=== PATIENT | female | born 1965 | race Native Hawaiian/Other Pacific Islander ===

== ENCOUNTER 2018-09-26 15:39 | Emergency (ER) | payer BC, OTHER ==
--- NOTE | 2018-09-26 17:45 | XRAY Report ---
Reason: Left knee pain Procedure Date: 09/26/2018 Accession Number: [id number] / [id number] Procedure: XR - Knee 4 View LT CPT Code: FULL RESULT: EXAM: LEFT KNEE RADIOGRAPHY EXAM DATE: 09/26/2018 05:16 PM. CLINICAL HISTORY: Fall, pain. COMPARISON: None. TECHNIQUE: 4 views, including oblique views. FINDINGS: Bones: Normal. No fractures or bone lesions. Joints: Normal. No effusion. No subluxations. Soft Tissues: Unremarkable. IMPRESSION: Normal knee radiography. [facility]
[2018-09-26 18:10] VITALS: BP 137/87
[2018-09-26] MEDS ORDERED: ACETAMINOPHEN 500 MG TABLET PO STA (18:18)
[2018-09-26] MEDS ORDERED: NAPROXEN 250 MG TABLET PO STA (18:18)
--- NOTE | 2018-09-26 18:21 | ED Physician Documentation ---
PD HPI LOWER EXT INJURY - Stated complaint Stated Complaint: L KNEE INJ - Chief complaint Chief Complaint: Ext Problem - History obtained from History obtained from: Patient - History of Present Illness PD HPI LOW EXT INJURY LOCATION: Left, Knee Type of injury: Fall, Twist Where injury occurred: Other (while skiing) Timing - onset: Today Timing - details: Abrupt onset Severity Comments: moderate Improved by: Rest, Immobilization Worsened by: Moving, Palpating Associated symptoms: Swelling Contributing factors: No: Anticoagulated Similar symptoms before: No diagnosis Recently seen: Not recently seen Review of Systems Constitutional: denies: Fever, Chills Eyes: denies: Discharge Ears: denies: Ear pain Nose: denies: Congestion Throat: denies: Sore throat Cardiac: denies: Chest pain / pressure GI: denies: Abdominal Pain Musculoskeletal: reports: Extremity pain, Extremity swelling PD PAST MEDICAL HISTORY - Past Medical History Past Medical History: No - Past Surgical History Past Surgical History: No - Allergies Allergies/Adverse Reactions: Allergies Allergy/AdvReac Type Severity Reaction Status Date / Time Penicillins Allergy Anaphylaxis Verified 09/26/18 15:50 - Social History Does the pt smoke?: No Smoking Status: Never smoker Does the pt drink ETOH?: No Does the pt have substance abuse?: No PD ED PE NORMAL - General General: Alert and oriented X 3, No acute distress - HEENT HEENT: Atraumatic, PERRL, EOMI, Ears normal - Derm Derm: Normal color - Extremities Extremities: No deformity. No: No tenderness to palpate (The patient has full active range of motion of the hip, there is decreased Active range of motion of the knee secondary to swelling and pain and there is normal range of motion of the ankle. The patient has tenderness to palpation of the left knee more so posteriorly. An accurate exam is limited secondary to the acute pain and swelling. The patient has a normal dorsalis pedis pulse and normal cap refill.) Results - Vitals Vitals: Vital Signs - 24 hr 09/26/18 09/26/18 15:52 18:08 Temperature 36.7 C Heart Rate 100 101 H Respiratory 16 16 Rate Blood Pressure 136/88 H 137/87 H O2 Saturation 97 98 Oxygen O2 Source Room air - Rads (name of study) Knee XR Radiology: Final report received, See rad report (no fx) PD MEDICAL DECISION MAKING - ED course ED course: The patient has no acute findings on her x-ray, the patient appears appropriate for discharge and will be given a knee immobilizer and crutches. I have advised that the patient should follow-up with orthopedics once her pain and swelling decreases so that orthopedics can reassess her and determine if there is concern for possible meniscus or ligamentous injury. The patient understands and agrees. I discussed warning signs and recommended returning for any worsening or any concerns. Departure - Departure Disposition: 01 Home, Self Care Clinical Impression: Knee strain Qualifiers: Encounter type: initial encounter Laterality: unspecified laterality Qualified Code(s): S86.919A - Strain of unspecified muscle(s) and tendon(s) at lower leg level, unspecified leg, initial encounter Condition: Good Instructions: ED Sprain Knee Follow-Up: [facility] [Provider Group] (Please call to schedule an appointment for follow-up of your knee injury for 1-2 weeks) Comments: You can weight-bear as tolerated Please return to the emergency department for worsening symptoms or any concerns
== END 2018-09-26 18:37 | disposition home or self-care (01) ==
LOC: ED 15:39
DX: S86.919A Strain of unspecified muscle(s) and tendon(s) at lower leg level, unspecified leg, initial encounter (principal); W03.XXXA Other fall on same level due to collision with another person, initial encounter; Y93.23 Activity, snow (alpine) (downhill) skiing, snowboarding, sledding, tobogganing and snow tubing; X50.1XXA Overexertion from prolonged static or awkward postures, initial encounter
CPT/HCPCS: 99282; 99283

== ENCOUNTER 2018-10-06 14:53 | Outpatient (CLI) | payer BC ==
--- NOTE | 2018-10-07 08:21 | MRI Report ---
Reason: INSTABILITY OF LEFT KNEE JOINT Procedure Date: 10/06/2018 Accession Number: [id number] / [id number] Procedure: MRI - Knee LT W/O CPT Code: FULL RESULT: EXAM: LEFT KNEE MRI WITHOUT CONTRAST EXAM DATE: 10/06/2018 04:03 PM. CLINICAL HISTORY: INSTABILITY OF LEFT KNEE JOINT. COMPARISON: KNEE 3 VIEW LT 09/26/2018 4:55 PM. TECHNIQUE: Multiplanar, multisequence T1-weighted and fluid-sensitive sequences of the knee without contrast. Other: None. FINDINGS: Cruciate ligaments: The posterior cruciate appears intact. The fibers of the anterior cruciate ligament are thickened and edematous. There is disorganization of fibers superiorly with some of the fibers laying horizontal posteriorly consistent with high-grade partial versus complete tear of the upper portions of the ligament. Medial meniscus: Intact. No tear is identified. Lateral meniscus: Intact. No tear is identified. Collateral ligaments: The medial and fibular collateral events per intact. Trace amount of edema adjacent to the medial collateral ligament. Bounds and articular surfaces: Moderate cartridge thinning, irregularity and fissuring over the patella with subchondral edema. Small joint effusion. Lateral patellar tracking. Mild cartilage surface irregularity in the medial and lateral compartments. Marrow edema consistent with bone contusion at the posterior aspect of the lateral tibial plateau as well as the periphery of the mid medial femoral condyle. IMPRESSION: 1. High-grade versus complete tear of the anterior cruciate ligament with corresponding posterior tibial plateau and medial femoral condyle bone contusions. [facility] MUSCULOSKELETAL RADIOLOGY SECTION
== END 2018-10-06 14:54 | disposition home or self-care (01) ==
LOC: DI 14:53
PROVIDERS: ATTEND Orthopaedic Surgery Sports Medicine
DX: S83.512A Sprain of anterior cruciate ligament of left knee, initial encounter (principal); S70.12XA Contusion of left thigh, initial encounter

== ENCOUNTER 2018-11-05 09:39 | Day surgery (SDC) | payer BC ==
[2018-11-05] MEDS ORDERED: ceFAZolin 2 GM/50 ML 2 GM/50 ML BAG IV ONE ×2 (09:50→12:00)
[2018-11-05 10:13] LABS: HCG UR QUAL NEGATIVE
[2018-11-05] MEDS ORDERED: LACTATED RINGERS 1,000 ML IV ONE ×2 (10:20→13:10)
[2018-11-05] MEDS ORDERED: EPINEPHrine 1 MG/ML AMP ONE (10:33)
[2018-11-05] MEDS ORDERED: BUPIVACAINE 0.25%-EPI 1:200000 PF 30 ML VIAL ONE (10:33)
--- NOTE | 2018-11-05 10:37 | ANESTHESIA ---
Pre-Anesthesia VS, & Labs - Diagnosis left knee anterior cruciate ligament sprain, left knee instability - Procedure left anterior cruciate ligament repair Vital Signs: Temp Pulse Resp BP Pulse Ox 36.6 C 91 18 153/104 H 99 11/05/18 09:57 11/05/18 09:57 11/05/18 09:57 11/05/18 09:57 11/05/18 09:57 Height 5 ft 11 in Weight (kg) 98 kg Body Mass Index 28.1 - NPO >8 hours - Is Patient ?: No - Lab Results Lab results reviewed: Yes Home Medications and Allergies Home Medications: Ambulatory Orders buPROPion HCl [Bupropion HCl ER] 300 mg PO DAILY 11/04/18 buPROPion HCl [Bupropion HCl ER] 300 mg PO DAILY 11/04/18 Allergies/Adverse Reactions: Allergies Allergy/AdvReac Type Severity Reaction Status Date / Time Penicillins Allergy Anaphylaxis Verified 09/26/18 15:50 Anes History & Medical History - Anesthetic History Anesthesia Complications: reports: Post-Operative Nausea/Vomiting Family history of Anesthesia Complications: Denies Family history of Malignant Hyperthermia: Denies - Medical History Cardiovascular: reports: None Pulmonary: reports: None Gastrointestinal: reports: None Urinary: reports: None Musculoskeletal: reports: None Endocrine/Autoimmune: reports: None Skin: reports: None Smoking Status: Never smoker Exam General: Alert, Oriented x3, Cooperative, No acute distress Dental: Other (cap) Mouth Openin Fingerbreadth Neck Mobility: Normal Mallampati classification: II Thyromental Distance: 4-6 cm Respiratory: Lungs clear, Normal breath sounds, No respiratory distress, No accessory muscle use Cardiovascular: Regular rate, Normal S1, Normal S2, No murmurs Mental/Cognitive Status: Alert/Oriented X3, Normal for patient Plan Anesthesia Type: General Consent for Procedure(s) Verified and Reviewed: Yes Code Status: Attempt Resuscitation ASA classification: 1-Healthy patient Is this case an emergency?: No
[2018-11-05] MEDS ORDERED: SCOPOLAMINE PATCH TOP ONE (10:38)
[2018-11-05] MEDS ORDERED: BUPIVACAINE 0.25% PF 10 ML VIAL ONE (10:52)
[2018-11-05] MEDS: BUPIVACAINE 0.5%-EPI 1:200000 PF 30 ML VIAL ONE ×2 (11:37→11:52)
[2018-11-05] MEDS ORDERED: LIDOCAINE-MPF 2% 5 ML VIAL IM ONE (12:00)
[2018-11-05] MEDS ORDERED: ROCURONIUM 50 MG/5 ML VIAL IVP ONE (12:00)
[2018-11-05] MEDS ORDERED: MORPHINE 10 MG/ML VIAL IVP ONE (12:00)
[2018-11-05] MEDS ORDERED: MIDAZOLAM 2 MG/2 ML VIAL IVP ONE (12:00)
[2018-11-05] MEDS ORDERED: PROPOFOL 200 MG/20 ML VIAL IVP ONE (12:00)
[2018-11-05] MEDS: ONDANSETRON 4 MG/2 ML VIAL ONE ×2 (13:18→13:41)
[2018-11-05] MEDS ORDERED: KETOROLAC 15 MG/ML VIAL ONE (13:24)
--- NOTE | 2018-11-05 13:25 | IMMEDIATE POSTOPERATIVE NOTE ---
Immediate Postoperative Note - Procedure Note Procedure Date: 11/05/18 Pre-Op Diagnosis: Left ACL grade 3 sprain Procedure: Left knee arthroscopically assisted ACL reconstruction with hamstring autog Post-Op Diagnosis: Same Primary Surgeon: Betzaida Meléndez Maintenance Of Way Clerk: None Anesthesia Type: General ET tube, Local Complications: No complications Estimated Blood Loss (in cc): 50 Specimens and Cultures: None Plan of Care: Intolerant procedure well instrument and sponge counts correct patient's brought to the recovery room in stable condition. Patient will follow standard postoperative ACL protocol left knee. When up and about she will keep her hinged knee brace locked in extension with assistance and assistive device as necessary and then when at rest we will remove the brace and work on range of motion. She will keep dressings clean dry and intact She will resume physical therapy per ACL protocol. We will see her in 10-14 days sooner should problems questions or worsening condition should that arise.
[2018-11-05] MEDS ORDERED: oxyCODONE 5 MG TABLET PO PRN (13:26)
[2018-11-05] MEDS ORDERED: ONDANSETRON 4 MG/2 ML VIAL IVP PRN (13:26)
[2018-11-05] MEDS ORDERED: fentaNYL 100 MCG/2 ML VIAL ONE (13:41)
[2018-11-05] MEDS ORDERED: DEXAMETHASONE 4 MG/ML VIAL ONE (13:47)
[2018-11-05] MEDS ORDERED: PROMETHAZINE 25 MG/1 ML VIAL ONE (14:01)
[2018-11-05] MEDS ORDERED: oxyCODONE 5 MG TABLET ONE (15:06)
[2018-11-05 15:32] VITALS: BP 116/83
--- NOTE | 2018-11-05 19:35 | OPERATIVE REPORT ---
DATE OF SERVICE: 11/05/2018 Physician: Willie Meléndez MD SURGEON: Willie Meléndez MD MACHINE STOPPAGE FREQUENCY CHECKER: None. ANESTHESIOLOGIST: Abhinav Boggs MD ANESTHESIA TYPE: General anesthesia as well as 18 mL of 0.5% Marcaine with epinephrine. ESTIMATED BLOOD LOSS: Less than 50 mL. FLUIDS: 1000 mL of lactated Ringer's. TOURNIQUET TIME: 97 minutes at 250 mmHg, left thigh. COMPRESSION DEVICE: Contralateral right calf. PREOPERATIVE ANTIBIOTICS: Weight-based IV Ancef. PREOPERATIVE DIAGNOSIS: Left knee grade 3 anterior cruciate ligament sprain. POSTOPERATIVE DIAGNOSES 1. Left knee grade 3 anterior cruciate ligament sprain. 2. Chondromalacia, multiple compartments. PROCEDURE: Left knee arthroscopically-assisted ACL reconstruction with hamstring autograft. HISTORY OF PRESENT ILLNESS AND INDICATIONS: Patient is an active 53-year-old female who had a grade 3 sprain, left ACL, which is functionally unstable. She is indicated for operative treatment. Please see previous clinic discussion for risks, benefits, and alternatives reviewed with her and her . These are again highlighted in the preoperative care unit. Their questions were answered. They verbalized understanding of above. The patient verbalized her wish to proceed with operative treatment. Informed consent was given. FINDINGS: Operative findings demonstrate full passive range of motion under anesthesia. Positive anterior drawer, Mely and pivot shift testing preprocedure, all of which are negative post ACL reconstruction. Intra- articular suprapatellar pouch and medial and lateral gutters clear. There is grade 2 chondromalacia apex of the patella and grade 1-2 chondromalacia of the trochlea. Medial and lateral compartments have grade 1-2 chondromalacia femoral condyle and tibial plateaus. No medial or lateral meniscal tear noted. PCL okay. ACL functionally complete grade 3 sprain scarred to the PCL. Post femoral fixation, there is good isometry throughout with minimal movement at terminal degrees of extension and good clearance laterally and anterior superiorly. Post tibial fixation, there is full range of motion and rock solid ACL exam throughout. No varus, valgus or posterior instability noted. PROCEDURE IN DETAIL: On 11/05/2018, patient identified in the preoperative care unit. She identified the left knee as the operative site. This was signed by the operating surgeon. Patient received preoperative weight-based IV Ancef, brought to the operating room and placed supine on the operating table. Head, neck and extremities placed in anatomically comfortable and safe position to avoid peripheral nerve stretch and compression. Patient had a well-padded tourniquet placed on the left thigh, taking care to avoid encumbrance of the genitalia. Patient's left knee and left lower extremity were pre-scrubbed with chlorhexidine solution, then prepped and draped in the usual sterile fashion. At this time, surgical pause identified the left knee as the operative site. At this point, local anesthetic infused anteromedial, anterolateral, superomedially and over the planned tibial incision. Esmarch bandage was used to exsanguinate the limb, and then tourniquet was inflated. A small incision was made over the pes. Spreading dissection carried out to the sartorial fascia, which was elevated in an L-shaped fashion. Gracilis and semitendinosus were harvested to maximal length after freeing fibrinous bands. This was set aside on a moist Ray-Jonelle after debriding muscular and fatty tissue and placing #2 FiberWire whipstitches in each end of the graft and draping this over an ACL TightRope. At this point, diagnostic arthroscopy was carried out. A small incision was made anterolaterally and superomedially. Outflow portal was created. Scope was introduced into the notch and then into the suprapatellar pouch. Fluid was infused. Outflow portal was created. Outside-in technique places anteromedial portal. Probe was introduced. Please see diagnostic arthroscopy. At this point, the knee was flexed to 90 degrees and the ACL residual scar tissue was debrided. A notchplasty was performed in the [id number]-thx-zwz position and then a tibial guide set at 57-1/2 based on anatomy was placed to the ACL footprint position anterior to the PCL appropriately and just posterior to the posterior aspect of the anterior horn of the lateral meniscus. Guidepin was brought to an appropriate position, followed by reaming 8 mm, followed by the [id number]-asl-tjx guide to a 130 position. Then, a spade-tipped guidewire brought through the femur, followed by reaming with a 1 mm back wall with an 8 mm acorn reamer to a depth of 25 mm. At this point, bony debris was evacuated. The ACL TightRope was brought into the joint and passed the second cortex, allowed to toggle on the second cortex. Tension was pulled noted to be taut and the graft was pulled into place and seated to a depth of approximately 23-25 mm. At this point, this was tensioned. Isometry was tested. Please see operative findings. At this point, the knee was flexed to 20 degrees. Posterior drawer was administered. All 4 graft limbs were pulled taut and then a guidewire was brought between them, followed by a 10 mm BioComposite interference screw, which has excellent compression fixation. The graft was then examined and noted to be taut. The knee range of motion was noted to be full with rock solid ACL examination. At this point, the residual graft limbs were cut. The joint was copiously irrigated and evacuated. No loose debris was noted. At this point, the arthroscopic incisions were closed using interrupted nylon suture. Sartorial fascia was closed over using 0 Vicryl, followed by repeat irrigation and skin closure of the tibial incision with 0 Vicryl, 2-0 Vicryl and Prolene. Steri-Strips were applied after the skin was washed and dried and local anesthetic was infused around each of the incisions. Xeroform dressing applied on all the wounds. Dry sterile dressing, ABD pad and Sof-Rol was applied. Kailash wrap was applied. Patient was placed in a hinged knee brace locked in extension. Patient tolerated the procedure well. Instrument and sponge counts were correct. Patient was transferred to the recovery room in stable condition. Patient will follow standard ACL protocol. She will be ambulating with assistance and assist device as necessary. Knee brace to be locked in extension for ambulation, though removed for range of motion at rest. She will ice and elevate as directed. She will use perioperative analgesics and aspirin for 1 month as well as akov-grj-ptpumau stool softener. She was given perioperative antibiotics preoperatively. Patient will follow up in 10-14 days, though sooner should problems or questions arise. Dressing will be kept in place. Patient will start physical therapy next week. Patient's was contacted in the waiting room. The case discussed and arthroscopic photos reviewed. His questions were answered. He verbalized agreement and satisfaction of the plan as outlined as the patient had preoperatively. TD: 11/05/2018 16:00 JODY
== END 2018-11-05 09:40 | disposition home or self-care (01) ==
LOC: SDS 09:39
PROVIDERS: ATTEND Orthopaedic Surgery Sports Medicine
PROC: 0LBM0ZZ Excision of Left Upper Leg Tendon, Open Approach (ICD-10-PCS; 2018-11-05)
PROC: 0MRP47Z Replacement of Left Knee Bursa and Ligament with Autologous Tissue Substitute, Percutaneous Endoscopic Approach (ICD-10-PCS; principal; 2018-11-05 11:00)
DX: M25.362 Other instability, left knee (principal); F41.9 Anxiety disorder, unspecified; J45.909 Unspecified asthma, uncomplicated; F32.9 Major depressive disorder, single episode, unspecified; M94.262 Chondromalacia, left knee
CPT/HCPCS: 29888; 81025; A9270; C1713; J0690; J3490; J7120

== ENCOUNTER 2022-02-26 08:34 | Outpatient (CLI) | payer BC ==
[2022-02-26 08:51] LABS: BASOPHILS # (AUTO) 0.1 10^3/uL (0.0-0.1); BASOPHILS % (AUTO) 1.1 %; EOSINOPHILS # (AUTO) 0.1 10^3/uL (0.0-0.7); EOSINOPHILS % (AUTO) 1.6 %; HCT - HEMATOCRIT 43.6 % (37.0-47.0); HGB - HEMOGLOBIN 13.8 g/dL (12.0-16.0); LYMPHOCYTES % (AUTO) 24.8 %; MEAN CORPUSCULAR HEMOGLOBIN 28.4 pg (27.0-31.0); MEAN CORPUSCULAR HGB CONC 31.7 g/dL (32.0-36.0); MEAN CORPUSCULAR VOLUME 89.7 fL (81.0-99.0); MEAN PLATELET VOLUME 9.6 fL (7.9-10.8); MONOCYTES # (AUTO) 0.5 10^3/uL (0.0-1.0); MONOCYTES % (AUTO) 6.3 %; NEUTROPHILS # (AUTO) 5.4 10^3/uL (1.5-6.6); NEUTROPHILS % (AUTO) 65.8 %; PLT - PLATELET COUNT 366 10^3/uL (130-450); RED BLOOD COUNT 4.86 10^6/uL (4.20-5.40); RED CELL DISTRIBUTION WIDTH 14.6 % (12.0-15.0); WHITE BLOOD COUNT 8.1 x10^3/uL (4.8-10.8)
[2022-02-26 09:06] LABS: ALBUMIN/GLOBULIN RATIO 1.2 (1.0-2.2); ALKALINE PHOSPHATASE 82 IU/L (42-121); ALT ALANINE AMINOTRANSFERASE 66 IU/L (10-60); AST ASPARTATE AMINOTRANSFERASE 30 IU/L (10-42); BILIRUBIN,TOTAL < 0.2 mg/dL (0.2-1.0); BUN - BLOOD UREA NITROGEN 14 mg/dL (6-20); CALCIUM 9.4 mg/dL (8.5-10.3); CARBON DIOXIDE - CO2 27 mmol/L (21-32); CHLORIDE 101 mmol/L (101-111); CHOL/HDL RATIO 7.5 (<4.4); CHOLESTEROL 291 mg/dL; CREATININE 0.9 mg/dL (0.4-1.0); GFR - MDRD 65 (>89); GLUCOSE 106 mg/dL (70-100); HDL CHOLESTEROL 39 mg/dL; SODIUM 138 mmol/L (135-145); TOTAL PROTEIN 7.3 g/dL (6.7-8.2); TRIGLYCERIDES 462 mg/dL
[2022-02-26 09:18] LABS: THYROID STIMULATING HORMONE 3.99 uIU/mL (0.34-5.60)
[2022-02-26 09:38] LABS: LDL CHOLESTEROL,DIRECT 143 mg/dL; LDLD/HDL RATIO 3.7 (<4.4)
[2022-02-26 12:46] LABS: ESTIMATED AVERAGE GLUCOSE 120 mg/dL (70-100); HEMOGLOBIN A1c% 5.8 % (4.27-6.07)
== END 2022-02-26 08:35 | disposition home or self-care (01) ==
LOC: LAB 08:34
PROVIDERS: ATTEND Nurse Practitioner Family
DX: I10 Essential (primary) hypertension (principal); E66.9 Obesity, unspecified; Z13.1 Encounter for screening for diabetes mellitus; E55.9 Vitamin D deficiency, unspecified
CPT/HCPCS: 36415; 80053; 80061; 82306; 83036; 83721; 84443; 85025

== ENCOUNTER 2022-09-11 11:49 | Outpatient (CLI) | payer BC ==
[2022-09-11 12:20] LABS: ALBUMIN 4.6 g/dL (3.2-5.5); ALBUMIN/GLOBULIN RATIO 1.3 (1.0-2.2); ALKALINE PHOSPHATASE 80 IU/L (42-121); ALT ALANINE AMINOTRANSFERASE 33 IU/L (10-60); AST ASPARTATE AMINOTRANSFERASE 22 IU/L (10-42); BILIRUBIN,TOTAL 0.5 mg/dL (0.2-1.0); BUN - BLOOD UREA NITROGEN 16 mg/dL (6-20); CALCIUM 10.1 mg/dL (8.5-10.3); CARBON DIOXIDE - CO2 29 mmol/L (21-32); CHLORIDE 103 mmol/L (101-111); CHOL/HDL RATIO 3.3 (<4.4); CHOLESTEROL 196 mg/dL; CREATININE 0.8 mg/dL (0.4-1.0); GFR - MDRD 74 (>89); GLUCOSE 103 mg/dL (70-100); HDL CHOLESTEROL 60 mg/dL; LDL CHOLESTEROL,CALCULATED 111 mg/dL; LDL/HDL RATIO 1.9 (<4.4); POTASSIUM 4.2 mmol/L (3.5-5.0); SODIUM 141 mmol/L (135-145); TOTAL PROTEIN 8.1 g/dL (6.7-8.2); TRIGLYCERIDES 127 mg/dL; VLDL CHOLESTEROL 25 mg/dL
== END 2022-09-11 11:50 | disposition home or self-care (01) ==
LOC: LAB 11:49
PROVIDERS: ATTEND Nurse Practitioner Family
DX: I10 Essential (primary) hypertension (principal); E78.5 Hyperlipidemia, unspecified; E78.1 Pure hyperglyceridemia; E55.9 Vitamin D deficiency, unspecified
CPT/HCPCS: 36415; 80053; 80061; 82306; 83721

== ENCOUNTER 2022-11-12 11:05 | Outpatient (CLI) | payer BC ==
--- NOTE | 2022-11-21 08:59 | Mammography Report ---
BILATERAL DIGITAL SCREENING MAMMOGRAM 3D/2D WITH EXAGGERATED CC: 11/12/2022 CLINICAL: Routine screening. No prior exams were available for comparison. Both breasts are heterogeneously dense, which may obscure small masses (category c / 51-75% glandular tissue). There is an oval high density focal asymmetry with a circumscribed margin in the left breast at 1 o'c lock middle depth. No other significant masses, calcifications, or other findings are seen in either breast. IMPRESSION: INCOMPLETE: NEEDS ADDITIONAL IMAGING EVALUATION The oval high density focal asymmetry in the left breast is indeterminate. Additional views with pos sible ultrasound are recommended. Based on the Tyrer Cuzick model (a risk assessment model) the patients lifetime risk is 10.9% and he r 10 year risk is 3.5%. According to the ACR, ACS, and NCCN guidelines, an annual breast MRI exam beverly ng with mammogram is recommended if the patients lifetime risk is 20% or greater. This exam was interpreted at Station ID: [id number]. NOTE: For mammograms, a report in lay terms will be sent to the patient. Approximately 15% of breast malignancies will not be visualized mammographically. In the management of a palpable breast mass, a negative mammogram must not discourage biopsy of a clinically suspicious lesion. Electronically Signed By: Francoise haque/yessi:11/20/2022 16:58:10 ACR BI-RADS Category 0: Incomplete 3340F PARENCHYMAL PATTERN: (D) - The breast(s) demonstrate(s) heterogeneously dense fibroglandular parsylviay ma. BI-RADS CATEGORY: (0) - 0 Mammo and [place] [id number] Immediate follow-up LATERALITY: (B)
== END 2022-11-12 11:06 | disposition home or self-care (01) ==
LOC: DI 11:05
PROVIDERS: ATTEND Nurse Practitioner Family
DX: Z12.31 Encounter for screening mammogram for malignant neoplasm of breast (principal); R92.8 Other abnormal and inconclusive findings on diagnostic imaging of breast

== ENCOUNTER 2022-11-12 11:06 | Outpatient (CLI) | payer BC ==
--- NOTE | 2022-11-12 13:44 | DEXA Report ---
PROCEDURE: Dexa Spine and/or Hip INDICATIONS: POST MENOPAUSAL TECHNIQUE: Dual energy x-ray absorptiometry (DXA) was performed on a [employer] System. Regions measur ed are the AP Spine, femoral neck, and if needed forearm. COMPARISON: None. FINDINGS: Lumbar Spine: Bone Mineral Density 1.217 g/cm/cm,T score 0.3, normal. Left Femoral Neck: Bone Mineral Density 1.011 g/cm/cm, T score -0.2, normal. Left Hip: Bone Mineral Density 1.071 g/cm/cm,T score 0.5, normal. Impression: Normal bone mineral density. Patients with diagnosis of osteoporosis or osteopenia should have regular bone mineral density assess ment. For those eligible for Medicare, routine testing is allowed once every 2 years. Testing frequ ency can be increased for patients who have rapidly progressing disease or for those who are receivin g medical therapy to restore bone mass. Reviewed by: Caleb Chau on 11/12/2022 1:43 PM PST Approved by: Caleb Chau on 11/12/2022 1:43 PM PST Station ID: [id number]
== END 2022-11-12 11:07 | disposition home or self-care (01) ==
LOC: DI 11:06
PROVIDERS: ATTEND Nurse Practitioner Family
DX: Z78.0 Asymptomatic menopausal state (principal)

== ENCOUNTER 2022-12-03 15:38 | Outpatient (CLI) | payer BC ==
[2022-12-03 15:57] LABS: CREATININE 0.8 mg/dL (0.4-1.0)
[2022-12-03] MEDS ORDERED: GADOBUTROL 10 MMOL/10 ML VIAL ONE (16:12)
[2022-12-03] MEDS ORDERED: GADOBUTROL 10 MMOL/10 ML VIAL IVP ONE (19:18)
--- NOTE | 2022-12-04 08:44 | MRI Report ---
PROCEDURE: ANGIO HEAD WO INDICATIONS: PULSATILE TINNITUS TECHNIQUE: Noncontrast axial 3-D mphz-[id number]-yayrrr MR angiogram, with 3-dimensional maximum intensity projection (M IP) reformats of the internal carotid arteries and posterior circulation then performed. COMPARISON: None. FINDINGS: Image quality: Excellent. Anterior circulation: Intracranial internal carotid arteries demonstrate normal size and intralumina l flow signal. The flow within the paired anterior cerebral arteries is normal and symmetric. The f low within the middle cerebral arteries is normal and symmetric. The anterior communicating artery i s seen. No stenoses, occlusions, or aneurysms. Posterior circulation: Visualized portions of the vertebral arteries demonstrate normal caliber, and join to form a normal appearing basilar artery. The flow within the posterior cerebral arteries is normal and symmetric. No stenoses, occlusions, or aneurysms. There is a vascular loop within the vi cinity of the left internal auditory canal, possibly arising from a posterior inferior cerebellar art bon branch. IMPRESSION: 1. Vascular loop within the vicinity of the left internal auditory canal, possibly arising from the p osterior inferior cerebellar artery. This could be further assessed with internal auditory canal MRI with and without intravenous contrast, if clinically indicated. 2. Otherwise negative cerebral MR angiography. Reviewed by: Piedad Yarbrough MD on 12/04/2022 8:43 AM PDT Approved by: Piedad Yarbrough MD on 12/04/2022 8:43 AM PDT Station ID: [id number]
--- NOTE | 2022-12-04 08:47 | MRI Report ---
PROCEDURE: ANGIO NECK W/WO INDICATIONS: PULSATILE TINNITUS CONTRAST: gadavist 9.4ml TECHNIQUE: Axial and sagittal balanced GE through the neck. Coronal dynamic MRA after the administration of con trast in the arterial and venous phases, with rotating 3-dimensional maximum intensity projection (MN P) reformats constructed from subtraction images. COMPARISON: None. FINDINGS: Image quality: Excellent. The thoracic aortic arch is patent without aneurysm nor dissection. There is variant branching anatom y with the right subclavian artery arising from the distal arch and coursing in a retroesophageal loc ation. There is a common origin of the right and left common carotid arteries, which is patent. The innominate, right subclavian, and right vertebral arteries are patent. The right common, internal, and external carotid arteries are patent. The left common, internal, and external carotid arteries are patent. The left subclavian artery is patent. Left vertebral artery origin and proximal 4 cm is not well seen , but the left vertebral artery is otherwise patent. The soft tissues of the neck and upper chest are grossly unremarkable. IMPRESSION: 1. Variant thoracic aortic branching anatomy as described above. 2. Retroesophageal right subclavian artery. This has been associated with dysphagia. 3. No evidence of internal carotid artery stenosis bilaterally. 4. Patent right vertebral artery. Suboptimally visualized proximal left vertebral artery which is oth erwise patent. Reviewed by: Piedad Yarbrough MD on 12/04/2022 8:46 AM PDT Approved by: Piedad Yarbrough MD on 12/04/2022 8:46 AM PDT Station ID: [id number]
== END 2022-12-03 15:39 | disposition home or self-care (01) ==
LOC: LAB 15:38
PROVIDERS: ATTEND Physician Assistant
DX: H93.A2 Pulsatile tinnitus, left ear (principal)
CPT/HCPCS: 36415; 70544; 70549; 82565; A9585

== ENCOUNTER 2022-12-04 12:05 | Outpatient (CLI) | payer BC ==
--- NOTE | 2022-12-05 10:26 | Ultrasound Report ---
LIMITED ULTRASOUND OF LEFT BREAST: 12/04/2022 CLINICAL: Patient returns today to evaluate a focal asymmetry in the left breast. Comparison is made to exams dated: 12/04/2022 mammogram, 11/12/2022 mammogram, and 11/14/2006 ultrasound - [facility]. Color flow and real-time ultrasound of the left breast 2-3 o'clock region were performed. Badillo scale images of the real-time examination were reviewed. There is a benign 0.8 cm round simple cyst in the left breast at 2 o'clock middle depth 5 cm from the nipple. This round simple cyst is anechoic. This correlates with mammography findings. Color flow imaging demonstrates that there is no vascularity present. IMPRESSION: BENIGN There is no sonographic evidence of malignancy. The 0.8 cm round simple cyst in the left breast is benign. A 1 year screening mammogram is recommended. Exam findings were conveyed to the patient. This exam was interpreted at Station ID: [id number]. Electronically Signed By: Tahir Pelaez M.D. slc/:12/04/2022 14:40:50 Ultrasound BI-RADS: 2 Benign BI-RADS CATEGORY: (2) - 2 Mammogram [id number] 1 year screening LATERALITY: (B)
--- NOTE | 2022-12-05 10:26 | Mammography Report ---
UNILATERAL LEFT DIGITAL DIAGNOSTIC MAMMOGRAM 3D/2D: 12/04/2022 CLINICAL: Patient returns today to evaluate a focal asymmetry in the left breast. Comparison is made to exam dated: 11/12/2022 mammogram - [facility]. The left breast is heterogeneously dense, which may obscure small masses (category c / 51-75% glandul ar tissue). There is an oval focal asymmetry with a circumscribed margin in the left breast at 1 o'clock middle d epth. Left breast biopsy clip. No other significant masses or calcifications are seen in the breast. IMPRESSION: INCOMPLETE: NEEDS ADDITIONAL IMAGING EVALUATION The oval focal asymmetry in the left breast is indeterminate. A targeted ultrasound is recommended and will immediately follow. An ultrasound is recommended. Based on the Tyrer Cuzick model (a risk assessment model) the patients lifetime risk is 10.9% and he r 10 year risk is 3.5%. According to the ACR, ACS, and NCCN guidelines, an annual breast MRI exam beverly ng with mammogram is recommended if the patients lifetime risk is 20% or greater. This exam was interpreted at Station ID: [id number]. NOTE: For mammograms, a report in lay terms will be sent to the patient. Approximately 15% of breast malignancies will not be visualized mammographically. In the management of a palpable breast mass, a negative mammogram must not discourage biopsy of a clinically suspicious lesion. Electronically Signed By: Tahir Pelaez M.D. slc/:12/04/2022 13:02:32 ACR BI-RADS Category 0: Incomplete 3340F PARENCHYMAL PATTERN: (D) - The breast(s) demonstrate(s) heterogeneously dense fibroglandular celina garcía. BI-RADS CATEGORY: (0) - 0 Ultrasound [id number] Immediate follow-up LATERALITY: (B)
== END 2022-12-04 12:06 | disposition home or self-care (01) ==
LOC: DI 12:05
PROVIDERS: ATTEND Nurse Practitioner Family
DX: N60.02 Solitary cyst of left breast (principal)

== ENCOUNTER 2024-05-13 09:05 | Outpatient (CLI) | payer OTHER ==
[2024-05-13 09:24] LABS: BASOPHILS # (AUTO) 0.1 10^3/uL (0.0-0.1); BASOPHILS % (AUTO) 0.8 %; EOSINOPHILS # (AUTO) 0.2 10^3/uL (0.0-0.7); EOSINOPHILS % (AUTO) 2.3 %; HCT - HEMATOCRIT 43.4 % (37.0-47.0); HGB - HEMOGLOBIN 13.5 g/dL (12.0-16.0); LYMPHOCYTES # (AUTO) 1.7 10^3/uL (1.5-3.5); MEAN CORPUSCULAR HEMOGLOBIN 27.8 pg (27.0-31.0); MEAN CORPUSCULAR HGB CONC 31.1 g/dL (32.0-36.0); MEAN CORPUSCULAR VOLUME 89.5 fL (81.0-99.0); MEAN PLATELET VOLUME 9.6 fL (7.9-10.8); MONOCYTES # (AUTO) 0.4 10^3/uL (0.0-1.0); MONOCYTES % (AUTO) 5.1 %; NEUTROPHILS # (AUTO) 5.1 10^3/uL (1.5-6.6); NEUTROPHILS % (AUTO) 68.5 %; PLT - PLATELET COUNT 355 10^3/uL (130-450); RED BLOOD COUNT 4.85 10^6/uL (4.20-5.40); RED CELL DISTRIBUTION WIDTH 14.2 % (12.0-15.0); WHITE BLOOD COUNT 7.4 x10^3/uL (4.8-10.8)
[2024-05-13 09:44] LABS: ALBUMIN 4.3 g/dL (3.2-5.5); ALBUMIN/GLOBULIN RATIO 1.6 (1.0-2.2); ALKALINE PHOSPHATASE 73 IU/L (42-121); ALT ALANINE AMINOTRANSFERASE 19 IU/L (10-60); AST ASPARTATE AMINOTRANSFERASE 15 IU/L (10-42); BILIRUBIN,TOTAL 0.3 mg/dL (0.2-1.0); BUN - BLOOD UREA NITROGEN 14 mg/dL (6-20); CALCIUM 9.5 mg/dL (8.5-10.3); CARBON DIOXIDE - CO2 28 mmol/L (21-32); CHLORIDE 105 mmol/L (101-111); CHOL/HDL RATIO 3.4 (<4.4); CHOLESTEROL 171 mg/dL; CREATININE 0.8 mg/dL (0.6-1.3); GFR - MDRD 74 (>89); GLUCOSE 97 mg/dL (74-104); HDL CHOLESTEROL 51 mg/dL; LDL CHOLESTEROL,CALCULATED 84 mg/dL; LDL/HDL RATIO 1.6 (<4.4); POTASSIUM 3.8 mmol/L (3.5-4.5); SODIUM 139 mmol/L (135-145); TRIGLYCERIDES 182 mg/dL; VLDL CHOLESTEROL 36 mg/dL
[2024-05-13 09:59] LABS: THYROID STIMULATING HORMONE 2.14 uIU/mL (0.34-5.60)
[2024-05-13 10:14] LABS: ESTIMATED AVERAGE GLUCOSE 114 mg/dL (70-100); HEMOGLOBIN A1c% 5.6 % (4.27-6.07)
== END 2024-05-13 09:06 | disposition home or self-care (01) ==
LOC: LAB 09:05
PROVIDERS: ATTEND Nurse Practitioner Family
DX: Z00.00 Encounter for general adult medical examination without abnormal findings (principal); I10 Essential (primary) hypertension; E78.5 Hyperlipidemia, unspecified; E66.9 Obesity, unspecified
CPT/HCPCS: 36415; 80053; 80061; 83036; 83721; 84443; 85025